=== PATIENT | female | born 1995 | race Caucasian/White ===

== ENCOUNTER 2017-10-08 07:29 | Emergency (ER) | payer MEDICAID | END 2017-10-08 08:59 | disposition home or self-care (01) | LOC: FTE 07:29 | DX: M25.562 Pain in left knee (principal) | CPT/HCPCS: 73562; 99283-25 ==

== ENCOUNTER 2018-06-08 11:32 | Emergency (ER) | payer MEDICAID ==
[2018-06-08] MEDS: ACETAMINOPHEN 325 MG TAB PO (14:10)
[2018-06-08 14:15] LABS: ADD MAN DIFF? NO
[2018-06-08 14:16] LABS: BASOPHILS % 0.3 % (0.0-2.0); EOSINOPHILS # 0.3 10^3/ul (0.0-0.5); EOSINOPHILS % 2.3 % (0.0-7.0); HEMATOCRIT 39.6 % (37.0-47.0); HEMOGLOBIN 13.9 g/dl (12.0-16.0); LYMPHOCYTES % 17.1 % (15.0-51.0); MEAN CORPUSCULAR HEMOGLOBIN 30.2 pg (29.0-33.0); MEAN CORPUSCULAR HGB CONC 35.1 g/dl (32.0-37.0); MEAN CORPUSCULAR VOLUME 85.9 fl (82.0-101.0); MEAN PLATELET VOLUME 9.9 fl (7.4-10.4); MONOCYTE # 0.7 10^3/ul (0.3-0.9); MONOCYTES % 5.5 % (0.0-11.0); NEUTROPHIL # 8.9 10^3/ul (1.6-7.5); NEUTROPHILS % 74.2 % (39.0-77.0); PLATELET COUNT 285 10^3/UL (140-415); RED BLOOD COUNT 4.61 10^6/ul (4.20-5.40); RED CELL DISTRIBUTION WIDTH 12.4 % (11.5-14.5)
[2018-06-08 14:22] LABS: ADD UMIC YES; UR ASCORBIC ACID NEGATIVE (NEGATIVE); UR BACTERIA FEW /HPF (NONE SEEN); UR BILIRUBIN (Dip) NEGATIVE (NEGATIVE); UR BLOOD (Dip) NEGATIVE (NEGATIVE); UR CLARITY SLIGHTLY CLOUDY (CLEAR); UR COLOR YELLOW (YELLOW); UR GLUCOSE (Dip) NEGATIVE (NEGATIVE); UR KETONES (Dip) NEGATIVE (NEGATIVE); UR LEUKOCYTE ESTERASE (Dip) 2+ Leu/ul (NEGATIVE); UR NITRITE (Dip) NEGATIVE (NEGATIVE); UR RBC 1 /HPF (0-5); UR SPECIFIC GRAVITY (Dip) 1.014 (1.003-1.030); UR SQUAMOUS EPITHELIAL CELL FEW /HPF (FEW); UR TOTAL PROTEIN (Dip) NEGATIVE (NEGATIVE); UR UROBILINOGEN (Dip) NEGATIVE (NEGATIVE); UR WBC 12 /HPF (0-5)
[2018-06-08 14:36] LABS: ALANINE AMINOTRANSFERASE 22 IU/L (13-69); ALBUMIN 4.4 g/dl (3.3-4.9); ALBUMIN/GLOBULIN RATIO 1.25; ALKALINE PHOSPHATASE 70 IU/L (42-121); ANION GAP 10 (5-13); ASPARTATE AMINO TRANSFERASE 23 IU/L (15-46); BILIRUBIN,INDIRECT 0.1 mg/dl (0-1.1); BILIRUBIN,TOTAL 0.1 mg/dl (0.2-1.3); BLOOD UREA NITROGEN 5 mg/dl (7-20); CALCIUM 10.1 mg/dl (8.4-10.2); CARBON DIOXIDE 25 mmol/L (21-31); CHLORIDE 103 mmol/L (97-110); CREATININE 0.43 mg/dl (0.44-1.00); Estimated GFR > 60 mL/min (>60); GLUCOSE 98 mg/dl (70-220); LIPASE 23 U/L (23-300); SODIUM 138 mmol/L (135-144); TOTAL PROTEIN 7.9 g/dl (6.1-8.1)
[2018-06-08] MEDS: NITROFURANTOIN (SR) 100 MG CAP PO (14:39)
== END 2018-06-08 14:51 | disposition home or self-care (01) ==
LOC: FTE 11:32
DX: O23.12 Infections of bladder in pregnancy, second trimester (principal); O26.892 Other specified pregnancy related conditions, second trimester; R10.9 Unspecified abdominal pain; Z3A.17 17 weeks gestation of pregnancy
CPT/HCPCS: 36415; 76805; 80053; 81001; 83690; 84702; 85025; 86900; 86901; 99284-25

== ENCOUNTER 2018-11-14 07:56 | Inpatient (IN) | payer MEDICAID ==
[2018-11-14] MEDS ORDERED: IBUPROFEN 600 MG TAB PO (08:30)
[2018-11-14] MEDS ORDERED: METHYLERGONOVINE 0.2 MG INJ IM (08:30)
[2018-11-14] MEDS ORDERED: CARBOPROST 250 MCG INJ IM (08:30)
[2018-11-14] MEDS ORDERED: OXYTOCIN 30 UNITS/LR 500 ML IV ×2 (08:30)
[2018-11-14] MEDS ORDERED: LIDOCAINE 1% (MPF) 30 ML INJ INJ (08:30)
[2018-11-14] MEDS ORDERED: MISOPROSTOL 200 MCG TAB PR (08:30)
[2018-11-14 08:48] LABS: ADD MAN DIFF? NO
[2018-11-14 08:50] LABS: WHITE BLOOD COUNT 8.9 10^3/ul (4.8-10.8)
[2018-11-14 08:50] LABS: BASOPHILS % 0.3 % (0.0-2.0); EOSINOPHILS # 0.1 10^3/ul (0.0-0.5); HEMATOCRIT 41.6 % (37.0-47.0); HEMOGLOBIN 14.4 g/dl (12.0-16.0); LYMPHOCYTES # 1.9 10^3/ul (0.8-2.9); LYMPHOCYTES % 21.2 % (15.0-51.0); MEAN CORPUSCULAR HEMOGLOBIN 29.8 pg (29.0-33.0); MEAN CORPUSCULAR HGB CONC 34.6 g/dl (32.0-37.0); MEAN PLATELET VOLUME 9.9 fl (7.4-10.4); MONOCYTE # 0.7 10^3/ul (0.3-0.9); MONOCYTES % 7.9 % (0.0-11.0); NEUTROPHILS % 67.7 % (39.0-77.0); PLATELET COUNT 240 10^3/UL (140-415); RED BLOOD COUNT 4.84 10^6/ul (4.20-5.40); RED CELL DISTRIBUTION WIDTH 13.1 % (11.5-14.5)
[2018-11-14] MEDS: LACTATED RINGER'S 1,000 ML IV ×2 (08:58→16:42)
[2018-11-14 09:20] LABS: INR 0.86; PARTIAL THROMBOPLASTIN TIME 27.8 Sec (23.0-35.0); PROTIME 11.8 Sec (11.9-14.9); PT RATIO 0.9
[2018-11-14] MEDS: MISOPROSTOL 50 MCG CAPSULE PO ×3 (09:29→17:32)
[2018-11-14 09:54] LABS: HEPATITIS B SURFACE ANTIGEN NEGATIVE (NEGATIVE)
[2018-11-14 21:20] LABS: RAPID PLASMA REAGIN NONREACTIVE (NR)
[2018-11-15] MEDS: LACTATED RINGER'S 1,000 ML IV ×3 (00:02→16:46)
[2018-11-15] MEDS: MISOPROSTOL 50 MCG CAPSULE PO ×3 (00:35→08:51)
[2018-11-15] MEDS ORDERED: OXYTOCIN 30 UNITS/LR 500 ML IV (13:30)
[2018-11-15] MEDS: OXYTOCIN 30 UNITS/LR 500 ML IV (14:21)
[2018-11-16] MEDS: LACTATED RINGER'S 1,000 ML IV ×4 (00:56→17:10)
[2018-11-16] MEDS: BUTORPHANOL 2 MG INJ IV (01:41)
[2018-11-16] MEDS ORDERED: NALOXONE (0.4 MG/ML) INJ IV (08:00)
[2018-11-16] MEDS: FENTAnyl 2MCG/ML-ROPIV 0.2% 100 ML BAG EPI (16:50)
[2018-11-16] MEDS: MINERAL OIL LIGHT 10 ML VIAL TOP (19:33)
[2018-11-17] MEDS: LACTATED RINGER'S 1,000 ML IV (00:38)
[2018-11-17] MEDS: FENTAnyl 2MCG/ML-ROPIV 0.2% 100 ML BAG EPI (00:38)
[2018-11-17] MEDS: OXYTOCIN 30 UNITS/LR 500 ML IV ×2 (02:44→06:27)
[2018-11-17] MEDS: LACTATED RINGER'S 1,000 ML IV* ×2 (03:04→12:34)
[2018-11-17] MEDS ORDERED: CARBOPROST 250 MCG INJ IM (03:30)
[2018-11-17] MEDS ORDERED: OXYTOCIN 30 UNITS/LR 500 ML IV (03:30)
[2018-11-17] MEDS ORDERED: METHYLERGONOVINE 0.2 MG INJ IM (03:30)
[2018-11-17] MEDS ORDERED: MISOPROSTOL 200 MCG TAB PR (03:30)
[2018-11-17] MEDS: MINERAL OIL LIGHT 10 ML VIAL TOP (03:31)
[2018-11-17] MEDS: BENZOCAINE 20% 56 ML SPRAY TOP (04:53)
[2018-11-17] MEDS: HYDROCODONE/APAP (5/325) TAB PO (04:53)
[2018-11-17] MEDS: LANOLIN HPA 1 PKT TOP ×2 (04:53→21:00)
[2018-11-17] MEDS: IBUPROFEN 600 MG TAB PO ×3 (05:37→17:44)
[2018-11-18] MEDS: IBUPROFEN 600 MG TAB PO ×4 (04:51→18:33)
[2018-11-18 08:30] LABS: ADD MAN DIFF? NO
[2018-11-18 08:38] LABS: BASOPHIL # 0.1 10^3/ul (0.0-0.1); BASOPHILS % 0.4 % (0.0-2.0); EOSINOPHILS # 0.3 10^3/ul (0.0-0.5); EOSINOPHILS % 2.4 % (0.0-7.0); HEMATOCRIT 33.8 % (37.0-47.0); HEMOGLOBIN 11.6 g/dl (12.0-16.0); LYMPHOCYTES # 2.8 10^3/ul (0.8-2.9); LYMPHOCYTES % 22.3 % (15.0-51.0); MEAN CORPUSCULAR HEMOGLOBIN 30.2 pg (29.0-33.0); MEAN CORPUSCULAR HGB CONC 34.3 g/dl (32.0-37.0); MEAN PLATELET VOLUME 10.4 fl (7.4-10.4); MONOCYTES % 7.8 % (0.0-11.0); NEUTROPHIL # 8.4 10^3/ul (1.6-7.5); NEUTROPHILS % 66.2 % (39.0-77.0); PLATELET COUNT 202 10^3/UL (140-415); RED BLOOD COUNT 3.84 10^6/ul (4.20-5.40); RED CELL DISTRIBUTION WIDTH 13.5 % (11.5-14.5)
[2018-11-18 08:38] LABS: WHITE BLOOD COUNT 12.7 10^3/ul (4.8-10.8)
[2018-11-19] MEDS: IBUPROFEN 600 MG TAB PO ×4 (00:19→18:19)
[2018-11-19] MEDS ORDERED: DIPHTH/TET/ACEL PERTUSS (ADULT) 0.5 ML VIAL IM* (09:00)
[2018-11-19] MEDS: DIPHTH/TET/ACEL PERTUSS (ADULT) 0.5 ML VIAL IM* (18:19)
== END 2018-11-19 19:20 | disposition home or self-care (01) | DRG 807 ==
LOC: PP1 11-17 04:31 → L-D 07:56
PROVIDERS: Obstetrics & Gynecology
PROC: 10E0XZZ Delivery of Products of Conception, External Approach (ICD-10-PCS; principal; 2018-11-17)
PROC: 0KQM0ZZ Repair Perineum Muscle, Open Approach (ICD-10-PCS; 2018-11-17)
PROC: 3E033VJ Introduction of Other Hormone into Peripheral Vein, Percutaneous Approach (ICD-10-PCS; 2018-11-17)
DX: O70.1 Second degree perineal laceration during delivery (principal); Z37.0 Single live birth; Z3A.40 40 weeks gestation of pregnancy
CPT/HCPCS: 62322; 76815; 85025; 85610; 85730; 86592; 86850; 86900; 86901; 87340; 90715; 99464